=== PATIENT | female | born 1965 | race Caucasian/White ===

== ENCOUNTER 2025-06-11 07:50 | Outpatient (CLI) | payer OTHER | END 2025-06-11 07:51 | disposition home or self-care (01) | LOC: CSHCP 07:50 | PROVIDERS: ATTEND Internal Medicine Hematology & Oncology | DX: C90.00 Multiple myeloma not having achieved remission (principal); C79.51 Secondary malignant neoplasm of bone | CPT/HCPCS: 93005; 93010; 94010; 94729; 94760 ==